=== PATIENT | male | born 1980 | race Caucasian/White ===

== ENCOUNTER 2016-12-01 20:45 | Emergency (ER) | payer SELFPAY ==
--- NOTE | 2016-12-01 21:35 | ER Document Report ---
ED Medical Screen (RME) - General Stated Complaint: FALL/BACK INJURY Time seen by provider: 21:32 Mode of Arrival: Ambulatory Information source: Patient Notes: 36-year-old male has been sick for 2 days with a sore throat, sweats, and cough. He got up today and slipped on a wet floor injuring his low back. The pain radiates into his left posterior leg. He did not get a flu shot. He was recently diagnosed with hypertension. I have greeted and performed a rapid initial assessment of this patient. A comprehensive ED assessment, evaluation of the patient, analysis of test results , and completion of the medical decision making process will be conducted by additional ED providers. Physical Exam - Vital signs Vitals: Temp Pulse Resp BP Pulse Ox 98.6 F 84 20 149/95 H 100 12/01/16 21:02 12/01/16 21:02 12/01/16 21:02 12/01/16 21:02 12/01/16 21:02 Course - Vital Signs Vital signs: Temp Pulse Resp BP Pulse Ox 98.6 F 84 20 149/95 H 100 12/01/16 21:02 12/01/16 21:02 12/01/16 21:02 12/01/16 21:02 12/01/16 21:02
[2016-12-01] MEDS ORDERED: ONDANSETRON ODT 4 MG TAB (6 TAB/DSPK) PO PRN (23:54)
[2016-12-01] MEDS ORDERED: HYDROCODONE/ACETAMINOPHEN 5-325 MG 6 TAB/DSPK PO PRN (23:54)
--- NOTE | 2016-12-01 23:56 | ER Document Report ---
ED Flu Like - General Chief Complaint: Flu Symptoms Stated Complaint: FALL/BACK INJURY Time seen by provider: 23:54 Mode of Arrival: Ambulatory Information source: Patient TRAVEL OUTSIDE OF THE [place] IN LAST 30 DAYS: No - HPI Patient complains to provider of: flulike symptoms Onset: This morning Timing/Duration: Persistent Quality of pain: Achy Severity: Moderate Pain Level: 2 Associated symptoms: Body/muscle aches, Nonproductive cough, Fever, Nausea, Vomiting Similar symptoms previously: No Recently seen / treated by doctor: No Notes: Patient is a 36-year-old male who presents to the emergency room complaining of flulike symptoms have been present throughout the day today and include hot and cold chills, runny nose, sore throat, nonproductive cough, nausea and vomiting, fever, he also sustained a slip and fall causing injury to his low back and notes that he has a history of scoliosis - Related Data Allergies/Adverse Reactions: No Known Allergies Allergy (Verified 12/01/16 21:35) Past Medical History - General Information source: Patient - Social History Smoking Status: Current Every Day Smoker Cigarette use (# per day): - 15 Chew tobacco use (# tins/day): No Frequency of alcohol use: Social Drug Abuse: None Family History: Reviewed & Not Pertinent Patient has suicidal ideation: No Patient has homicidal ideation: No - Past Medical History Cardiac Medical History: Reports: Hx Hypertension Renal/ Medical History: Denies: Hx Peritoneal Dialysis - Immunizations Hx Diphtheria, Pertussis, Tetanus Vaccination: - unsure Review of Systems - Review of Systems Constitutional: See HPI EENT: See HPI Cardiovascular: No symptoms reported Respiratory: See HPI Gastrointestinal: See HPI Genitourinary: No symptoms reported Male Genitourinary: No symptoms reported Musculoskeletal: Back pain Skin: No symptoms reported Hematologic/Lymphatic: No symptoms reported Neurological/Psychological: No symptoms reported -: Yes All other systems reviewed and negative Physical Exam - Vital signs Vitals: Temp Pulse Resp BP Pulse Ox 98.6 F 84 20 149/95 H 100 12/01/16 21:02 12/01/16 21:02 12/01/16 21:02 12/01/16 21:02 12/01/16 21:02 Interpretation: Normal - General General appearance: Appears well, Alert - HEENT Head: Normocephalic, Atraumatic Eyes: Normal Conjunctiva: Normal Extraocular movements intact: Yes Eyelashes: Normal Pupils: PERRL Ears: Normal Nasal: Normal Mouth/Lips: Normal Mucous membranes: Normal Pharynx: Erythema. No: Exudate, Tonsillar hypertrophy Neck: Normal - Respiratory Respiratory status: No respiratory distress Chest status: Nontender Breath sounds: Normal Chest palpation: Normal - Cardiovascular Rhythm: Regular Heart sounds: Normal auscultation Murmur: No - Abdominal Inspection: Normal Distension: No distension Bowel sounds: Normal Tenderness: Nontender Organomegaly: No organomegaly - Back Back: Tender - Tender to palpate and paraspinal musculature of the lumbar spine - Extremities General upper extremity: Normal inspection, Nontender, Normal color, Normal ROM , Normal temperature General lower extremity: Normal inspection, Nontender, Normal color, Normal ROM , Normal temperature, Normal weight bearing. No: Lily's sign - Neurological Neuro grossly intact: Yes Cognition: Normal Orientation: AAOx4 [place] Coma Scale Eye Opening: Spontaneous [place] Coma Scale Verbal: Oriented [place] Coma Scale Motor: Obeys Commands [place] Coma Scale Total: 15 Speech: Normal Motor strength normal: LUE, RUE, LLE, RLE Sensory: Normal - Psychological Associated symptoms: Normal affect, Normal mood - Skin Skin Temperature: Warm Skin Moisture: Dry Skin Color: Normal Course - Re-evaluation Re-evalutation: 12/02/16 03:24 Lab and imaging findings were discussed with patient at bedside which are consistent with influenza a, he was advised to continue with supportive care, was given a prescription for pain medication for his back strain and information for follow-up, patient acknowledges understanding and agreement with this plan - Vital Signs Vital signs: Temp Pulse Resp BP Pulse Ox 98.9 F 79 16 140/86 H 97 12/02/16 00:00 12/02/16 00:00 12/02/16 00:00 12/02/16 00:00 12/02/16 00:00 - Diagnostic Test Radiology reviewed: Image reviewed, Reports reviewed Discharge - Discharge Clinical Impression: Influenza A, Low back strain Condition: Stable Disposition: HOME, SELF-CARE Instructions: Influenza ([facility]), Low Back Pain ([facility]) Additional Instructions: Follow up with your primary care provider in one to 2 days. Return to the emergency room immediately if symptoms worsen or any additional concerns. Prescriptions: Hydrocodone/Acetaminophen [Hydrocodon-Acetaminophen 5-325] 1 each PO Q6 #20 tablet
[2016-12-02 00:04] VITALS: BP 140/86
== END 2016-12-02 00:03 | disposition home or self-care (01) ==
LOC: ER 20:45
DX: J11.1 Influenza due to unidentified influenza virus with other respiratory manifestations (principal); S39.012A Strain of muscle, fascia and tendon of lower back, initial encounter; F17.210 Nicotine dependence, cigarettes, uncomplicated; W01.0XXA Fall on same level from slipping, tripping and stumbling without subsequent striking against object, initial encounter; I10 Essential (primary) hypertension
CPT/HCPCS: 72110; 87070; 87804; 87880; 99283

== ENCOUNTER 2017-01-04 19:51 | Emergency (ER) | payer SELFPAY ==
--- NOTE | 2017-01-04 20:32 | ER Document Report ---
ED Extremity Problem, Lower - General Chief Complaint: Toe Injury Stated Complaint: RIGHT GREAT TOE PAIN AND SWELLING Time seen by provider: 20:20 Mode of Arrival: Ambulatory Information source: Patient Notes: 36-year-old male presents to ED for right great toe pain. He states he dropped a hammer on his toe 2 days ago. States he has been hurting every day while he is at work. States he has not had any pain medicines. TRAVEL OUTSIDE OF THE [place] IN LAST 30 DAYS: No - HPI Patient complains to provider of: Injury, Pain Location: Great Toe - Right Occurred: Other - 2 days ago Where: Work Onset/Duration: Persistent Quality of pain: Achy, Sharp Severity: Moderate Pain Level: 3 Context: Wearing shoes Associated symptoms: Other - Dropped a hammer on his toe Exacerbated by: Movement, Walking Relieved by: Nothing - Related Data Allergies/Adverse Reactions: No Known Allergies Allergy (Verified 01/04/17 20:28) Home Medications: Current Home Medications No Home Medications 01/04/17 [History] Past Medical History - General Information source: Patient - Social History Smoking Status: Current Every Day Smoker Cigarette use (# per day): Yes - 3-4 cigarettes a Chew tobacco use (# tins/day): No Smoking Education Provided: Yes - less than 1 minute Frequency of alcohol use: Social Drug Abuse: None Occupation: construction Lives with: Family Family History: Arthritis, CAD, CVA, Hyperlipidemia, Hypertension Patient has suicidal ideation: No Patient has homicidal ideation: No - Past Medical History Cardiac Medical History: Reports: Hx Hypertension Pulmonary Medical History: Reports: None EENT Medical History: Reports: None Neurological Medical History: Reports: None Endocrine Medical History: Reports: None Renal/ Medical History: Reports: None Malignancy Medical History: Reports None GI Medical History: Reports: None Musculoskeltal Medical History: Reports Hx Musculoskeletal Deformity - Scoliosis and states one of his shoulder dislocates himself frequently Skin Medical History: Reports None Psychiatric Medical History: Reports: None Traumatic Medical History: Reports: None Infectious Medical History: Reports: None Surgical Hx: Negative Past Surgical History: Reports: None - Immunizations Hx Diphtheria, Pertussis, Tetanus Vaccination: - unsure Review of Systems - Review of Systems Constitutional: No symptoms reported EENT: No symptoms reported Cardiovascular: No symptoms reported Respiratory: No symptoms reported Gastrointestinal: No symptoms reported Genitourinary: No symptoms reported Male Genitourinary: No symptoms reported Musculoskeletal: No symptoms reported Skin: No symptoms reported Hematologic/Lymphatic: No symptoms reported Neurological/Psychological: No symptoms reported -: Yes All other systems reviewed and negative Physical Exam - Vital signs Vitals: Temp Pulse Resp BP Pulse Ox 98.3 F 105 H 18 141/92 H 96 01/04/17 19:58 01/04/17 19:58 01/04/17 19:58 01/04/17 19:58 01/04/17 19:58 Interpretation: Hypertensive - General General appearance: Appears well, Alert - HEENT Head: Normocephalic, Atraumatic Eyes: Normal Pupils: PERRL - Respiratory Respiratory status: No respiratory distress Chest status: Nontender Breath sounds: Normal Chest palpation: Normal - Cardiovascular Rhythm: Regular Heart sounds: Normal auscultation Murmur: No - Abdominal Inspection: Normal Distension: No distension Bowel sounds: Normal Tenderness: Nontender Organomegaly: No organomegaly - Back Back: Normal, Nontender - Extremities General upper extremity: Normal inspection, Nontender, Normal color, Normal ROM , Normal temperature General lower extremity: Normal temperature, Normal weight bearing. No: Lily' s sign Hip: Normal, Nontender Thigh: Normal, Nontender Knee: Normal, Nontender Calf: Normal, Nontender Ankle: Normal, Nontender Foot: Tender - Right great toe, Ecchymosis - " Right great toe, No evidence of FB. No: Abrasion, Deformity, Edema, Instability, Laceration, Metatarsal compress. pain, Nail injury, Puncture wound, Tender 5th metatarsal, Unable to bear weight - Neurological Neuro grossly intact: Yes Cognition: Normal Orientation: AAOx4 [place] Coma Scale Eye Opening: Spontaneous [place] Coma Scale Verbal: Oriented [place] Coma Scale Motor: Obeys Commands [place] Coma Scale Total: 15 Speech: Normal Motor strength normal: LUE, RUE, LLE, RLE Sensory: Normal - Psychological Associated symptoms: Normal affect, Normal mood - Skin Skin Temperature: Warm Skin Moisture: Dry Skin Color: Normal, Ecchymosis - Slight bruising to right great toe Course - Re-evaluation Re-evalutation: 01/04/17 21:05 Discussed x-ray with patient, we'll place patient on a dispense pack of [place]. Instructed patient to elevate and ice the foot. Patient to follow-up with orthopedics if symptoms increase. - Vital Signs Vital signs: Temp Pulse Resp BP Pulse Ox 98.3 F 105 H 18 141/92 H 96 01/04/17 19:58 01/04/17 19:58 01/04/17 19:58 01/04/17 19:58 01/04/17 19:58 - Diagnostic Test Radiology reviewed: Image reviewed - Reviewed image with Dr. Fields he agreed that the toe is broken proximal aspect of distal phalanx Discharge - Discharge Clinical Impression: Fracture of right great toe Qualifiers: Encounter type: initial encounter Fracture type: closed Phalanx: distal Fracture alignment: displaced Qualified Code(s): S92.421A - Displaced fracture of distal phalanx of right great toe, initial encounter for closed fracture Condition: Stable Disposition: HOME, SELF-CARE Additional Instructions: Fractured Toe You have fractured your toe. Although this fracture doesn't need a cast or splint, emergency evaluation was needed to assess the straightness of the bones and joints. Reduction ("setting") is necessary for toe fractures which are crooked or twisted. A toe fracture will heal in about three weeks. Usually, the fractured toe is taped to the next toe. The second toe acts as a moving splint to protect the broken one. Ice and elevation help during the first 48 hours. You may need crutches at first if walking is painful. When you begin walking, be careful NOT to do things that hurt. If weight bearing is not comfortable within a few days, you may require a special shoe, walking boot, or cast. Call the doctor or return at once if severe swelling, severe pain, or numbness develop in the toe, or if you suspect you may have re-injured it. ICE & ELEVATION: Apply ice packs frequently against the painful area. Many different schedules are recommended, such as "20 minutes on, 20 minutes off" or "one hour ice, two hours rest." If you need to work, you may need to go longer between ice treatments. You should plan to have the area ice packed AT LEAST one- fourth of the time. The ice should be applied over the wrap, tape, or splint, or over a layer of cloth -- not directly against the skin. Some ice bags have a built-in cloth and can be put directly on the skin. Your injured part should be elevated as much as possible over the next 48 hours. Try to keep the injury above the level of the heart. Avoid use of the injured area. Elevation and rest will decrease the swelling. USE OF [id number] IBUPROFEN: Ibuprofen (Advil, Nuprin, Medipren, Motrin IB) is a medication for fever and pain control. In addition, it has anti- inflammatory effects which may be beneficial, especially in the treatment of injuries. It's best to take ibuprofen with food. Persons with ulcer disease or allergy to aspirin should notify their physician of this before taking ibuprofen. Ibuprofen can be given every four to six hours, for a total of four doses daily. Age Pain or fever dose Antiinflammatory dose 6-8 yr 200 mg (1 tab) 200 mg (1 tab) 9-11 yr 200 mg (1 tab) 200-400 mg (1-2 tab) 11-14 yr 200-400 mg (1-2 tab) 400 mg (2 tab) 15-adult 400 mg (2 tab) 600 mg (3 tab) ORAL NARCOTIC MEDICATION: You have been given a prescription for pain control. This medication is a narcotic. It's best taken with food, as nausea can result if taken on an empty stomach. Don't operate machinery or drive within six hours of taking this medication. Do not combine this medicine with alcohol, or with any medication which can cause sedation (such as cold tablets or sleeping pills) unless you get permission from the physician. Narcotics tend to cause constipation. If possible, drink plenty of fluids and eat a diet high in fiber and fruits. Please be aware that prescription narcotics also have the potential for abuse. People become addicted to these medications because of the general sense of wellbeing that they induce. This feeling along with a significant reduction in tension, anxiety, and aggression provides a stimulating seductive quality to these drugs. Once your pain is under control, we encourage you to discard your unused narcotics. FOLLOW-UP CARE: If you have been referred to a physician for follow-up care, call the physician s office for an appointment as you were instructed or within the next two days. If you experience worsening or a significant change in your symptoms, notify the physician immediately or return to the Emergency Department at any time for re-evaluation. Please complete the patient's satisfaction survey if you get one and return. If you do not receive a survey you can go to [email or web address] and placed your comments about your very good care. Thank you very much. It was a pleasure be in your medical provider today. Forms: Elevated Blood Pressure, Smoking Cessation Education, Return to Work Referrals: JULIÁN BYRD MD [ACTIVE STAFF] - Follow up as needed
[2017-01-04] MEDS ORDERED: HYDROCODONE/ACETAMINOPHEN 5-325 MG 6 TAB/DSPK PO PRN (21:03)
[2017-01-04 23:28] VITALS: BP 144/92
== END 2017-01-04 21:20 | disposition home or self-care (01) ==
LOC: ER 19:51
DX: S92.421A Displaced fracture of distal phalanx of right great toe, initial encounter for closed fracture (principal); W20.8XXA Other cause of strike by thrown, projected or falling object, initial encounter; Y99.0 Civilian activity done for income or pay; I10 Essential (primary) hypertension; F17.210 Nicotine dependence, cigarettes, uncomplicated; Z71.6 Tobacco abuse counseling
CPT/HCPCS: 99283